=== PATIENT | female | born 1990 | race Caucasian/White ===

== ENCOUNTER 2018-08-26 10:51 | Observation (INO) | payer OTHER ==
[2018-08-26] MEDS ORDERED: ACETAMINOPHEN 500 MG TAB PO ONE (11:26)
[2018-08-26 11:51] LABS: PLATELET COUNT 196 10^3/uL (150-400)
--- NOTE | 2018-08-26 12:45 | PDGENHP ---
History and Physical History and Physical: CARE: [facility] HPI: Patient is a 28 yo G 4 P 0030 at 29.5 weeks ega who presents to L&D with complaints of feeling suddenly dizzy, diaphoretic and tachycardic around 10 am this morning while at work. She was sitting at her desk and did not fall or lose consciousness. She reports good activity, denies LOF, VB or painful contractions. She does report "maddy blair" contractions that are intermittent and not painful. She has had what she describes as 'palpitations' off and on during but has previously declined a cardiology consult. She reports she continues to have daily palpitations. She has had these in the past related to anxiety, but states she has not been feeling anxious. EDC: 11/06/18 which is based on LMP: 01/30/18 which is known and consistent with Ultrasound at 8 weeks. Her is complicated by: -h/o SAB X3 -h/o bipolar disorder - not currently treated -h/o renal papillary necrosis Review of Systems: 10 point ROS wnl other than what is mentioned in HPI HISTORY: Previous OB history: SAB X3 Past medical history: h/o bipolar disorder (not treated) , h/o renal papillary necrosis Past surgical history: uterine polyp removal Medications: PNV Allergies (list reaction): percocet, latex LABS: Rh: A pos ABS: Neg Rubella: Immune HbsAg: NR HIV: NR VDRL: NR 1hr: wnl GC: Neg Chlamydia: Neg GBS: unknown PHYSICAL EXAM: Constitutional: WN, A&Ox3 Skin: pink, warm, dry HEENT: normocephalic atraumatic, supple Heart: RRR, no murmur Chest: CTA-B Abdomen: Soft, nontender, gravid SVE: deferred Extremities: tr edema, negative michele's sign Neuro: grossly normal Psych: normal affect assessment: Reassuring FHTs, baseline 140s +accels, no decels, moderate variability Contractions: toco quiet Assessment: 1) 28 yo G 4 P 0 with IUP@ 29.5 weeks ega 2) Episode of dizziness after high carbohydrate breakfast, intermittent palpitations that have been persistent through second trimester 3) CBC normal, urine dip wnl 4) Cat 1 FHR tracing 5) VS all WNL Plan: Will d/c home. Suspect dizziness was related to blood sugar drop after high carbohydrate breakfast. Feeling better now, just a little "off" per pt. - denies dizziness- all VS wnl while here in L/D. Encouraged less carbohydrates ( focus on complex carbs and increase protein intake - especially at breakfast) Continue with good hydration. Rest and relax the rest of the day. Will do consult with [facility] outpatient due to persistent palpitations - had previously declined consult. Reviewed PTL precautions, FKCs. To call if she has another episode of dizziness or similar symptoms. Will follow up in office next week for regular NICOLE visit. Verbalizes understanding and feels comfortable with POC.
== END 2018-08-26 13:00 | disposition home or self-care (01) ==
LOC: FLD 10:51
PROVIDERS: ADMIT Advanced Practice Midwife; ATTEND Advanced Practice Midwife
DX: O26.893 Other specified pregnancy related conditions, third trimester (principal); R42 Dizziness and giddiness; R00.2 Palpitations; Z3A.29 29 weeks gestation of pregnancy